=== PATIENT | female | born 1975 | race Caucasian/White ===

== ENCOUNTER 2019-12-26 10:09 | Emergency (ER) | payer BC ==
--- NOTE | 2019-12-26 10:56 | EDM.PDOC ---
ED HPI GENERAL MEDICAL PROBLEM - General Chief Complaint: Gastrointestinal Problem Stated Complaint: NAUSA BLOODY STOOLS Time Seen by Provider: 12/26/19 10:57 - History of Present Illness INITIAL COMMENTS - FREE TEXT/NARRATIVE: Patient presents emergency department with loose stools that have now become bloody. She denies any current abdominal pains but has had some crampy low abdominal pains with stooling and she denies any hemorrhoids. Patient denies any sick contacts that she has no upper respiratory symptoms at this time. Otherwise patient is healthy and denies and antibiotic use or any change in medicine Onset: Gradual - Related Data Allergies Allergy/AdvReac Type Severity Reaction Status Date / Time naproxen [From Aleve] Allergy Anaphylactic Verified 12/26/19 10:53 Shock Home Meds: Home Meds Ciprofloxacin [Ciprofloxacin HCl] 500 mg PO BID #14 tab 12/26/19 [Rx] Losartan [Cozaar] 50 mg PO DAILY 12/26/19 [History] Omeprazole 20 mg PO DAILY 12/26/19 [History] Ondansetron [Zofran ODT] 4 mg PO Q6H PRN #10 tab.dis 12/26/19 [Rx] hydroCHLOROthiazide [Hydrochlorothiazide] 25 mg PO DAILY 12/26/19 [History] metroNIDAZOLE [Flagyl] 500 mg PO Q8H #21 tab 12/26/19 [Rx] Past Medical History HEENT History: Reports: Impaired Vision Cardiovascular History: Reports: Hypertension [employer] History: Reports: Musculoskeletal History: Reports: Fracture - Infectious Disease History Infectious Disease History: Reports: Chicken Pox Social & Family History - Tobacco Use Smoking Status *Q: Never Smoker - Caffeine Use Caffeine Use: Reports: None - Recreational Drug Use Recreational Drug Use: No ED ROS GENERAL - Review of Systems Review Of Systems: Comprehensive ROS is negative, except as noted in HPI. ED EXAM, GENERAL - Physical Exam Exam: See Below Exam Limited By: No Limitations General Appearance: Alert Head: Atraumatic Neck: Normal Inspection Respiratory/Chest: No Respiratory Distress GI/Abdominal: Soft Extremities: Normal Inspection Neurological: Alert Psychiatric: Normal Affect Course - Vital Signs Text/Narrative:: Stool samples were taken and sent and we have decided to try the patient on some outpatient Zofran Flagyl and Cipro and have her follow-up as needed and return for any new or worsening symptoms Last Recorded V/S: Last Vital Signs Temp 97.3 F 12/26/19 10:32 Pulse 111 H 12/26/19 10:32 Resp 14 12/26/19 10:32 BP 151/91 H 12/26/19 10:32 Pulse Ox 99 12/26/19 10:32 - Orders/Labs/Meds Orders: Active Orders 24 hr Category Date Time Status C Diff [CLOS DIFFICILE PCR W/REFLEX] [RM] Stat Lab 12/26/19 10:44 Ordered OCCULT BLOOD SCREEN [OP] Urgent Lab 12/26/19 10:41 Ordered OVA + PARASITE EXAM Urgent Lab 12/26/19 10:41 Ordered WBC, STOOL [OP] Urgent Lab 12/26/19 10:41 Ordered Departure - Departure Time of Disposition: 10:59 Disposition: Home, Self-Care 01 Condition: Fair Clinical Impression: Diarrhea - Discharge Information *PRESCRIPTION DRUG MONITORING PROGRAM REVIEWED*: No *COPY OF PRESCRIPTION DRUG MONITORING REPORT IN PATIENT SAMMI: No Instructions: Diarrhea, Adult Referrals: Shirley Gu NP [Primary Care Provider] - Sepsis Event Note (ED) - Evaluation Sepsis Screening Result: No Definite Risk - Focused Exam Vital Signs: Vital Signs Temp Pulse Resp BP Pulse Ox 12/26/19 10:32 97.3 F 111 H 14 151/91 H 99 12/26/19 10:29 97.3 F 111 H 14 151/91 H 99 - My Orders Last 24 Hours: My Active Orders 12/26/19 10:41 OCCULT BLOOD SCREEN [OP] Urgent OVA + PARASITE EXAM Urgent WBC, STOOL [OP] Urgent 12/26/19 10:44 C Diff [CLOS DIFFICILE PCR W/REFLEX] [RM] Stat - Assessment/Plan Last 24 Hours: My Active Orders 12/26/19 10:41 OCCULT BLOOD SCREEN [OP] Urgent OVA + PARASITE EXAM Urgent WBC, STOOL [OP] Urgent 12/26/19 10:44 C Diff [CLOS DIFFICILE PCR W/REFLEX] [RM] Stat
== END 2019-12-26 11:23 | disposition home or self-care (01) ==
LOC: JP.ED 10:09
DX: R19.7 Diarrhea, unspecified (principal); I10 Essential (primary) hypertension; Z79.899 Other long term (current) drug therapy; Z88.3 Allergy status to other anti-infective agents
CPT/HCPCS: 82272; 87046; 87077; 87493; 87899; 89055; 99284